=== PATIENT | female | born 1955 | race Caucasian/White ===

== ENCOUNTER 2016-10-06 11:18 | Inpatient (IN) | payer OTHER ==
[~2016-10-06] VITALS: Ht 167.6 cm; Wt 65.0 kg
[2016-10-06] VITALS (13 sets, daily range): BP systolic 105–175; BP diastolic 74–102; PULSE 54–134; RESP 16–18; TEMP 98.1–98.9; O2SAT 95–100
[~2016-10-06 11:18] MED LIST: ASPI81 PO; FEXO180 PO; SYNT25TA
[2016-10-06] MEDS ORDERED: DILTIAZEM HCL 25 MG/5 ML VIAL IV PUSH ONE (11:30)
[2016-10-06] MEDS ORDERED: SODIUM CHLORIDE 0.9% FLUSH 5 ML FLUSH IVF PRN ×2 (11:30→12:00)
--- NOTE | 2016-10-06 12:00 | RADHPO ---
EXAM DATE/TIME: 10/06/2016 11:52 [place] COMPARISON: No previous studies available for comparison. INDICATIONS : Chest pain and rapid heartbeat. MEDICAL HISTORY : Chronic obstructive pulmonary disease. Thyroid disease. SURGICAL HISTORY : None. ENCOUNTER: Initial ACUITY: 1 day PAIN SCORE: 1/10 LOCATION: Bilateral chest FINDINGS: A single view of the chest demonstrates the lungs to be symmetrically aerated without evidence of mas s, infiltrate or effusion. The cardiomediastinal contours are unremarkable. Osseous structures are intact. CONCLUSION: No acute disease. Jamie Coronado MD on October 06, 2016 at 11:58 Board Certified Radiologist. This report was verified electronically.
[2016-10-06 12:01] LABS: AUTOMATED NEUTROPHIL # 5.5 TH/MM3 (1.8-7.7); BASOPHIL # 0.1 TH/MM3 (0-0.2); BASOPHIL % 1.1 % (0.0-2.0); EOSINOPHIL # 0.6 TH/MM3 (0-0.4); EOSINOPHIL % 5.8 % (0.0-4.0); HEMATOCRIT 42.4 % (35.0-46.0); HEMO FLAGS DIFF FINAL; LYMPH % 28.6 % (9.0-44.0); LYMPHOCYTE # 2.8 TH/MM3 (1.0-4.8); MEAN CELL VOLUME 88.9 FL (80.0-100.0); MEAN CORPUSCULAR HEMOGLOBIN 30.1 PG (27.0-34.0); MEAN CORPUSCULAR HGB CONC 33.9 % (32.0-36.0); MONO % 8.3 % (0.0-8.0); NEUT % 56.2 % (16.0-70.0); PLATELET COUNT 359 TH/MM3 (150-450); RED BLOOD COUNT 4.77 MIL/MM3 (4.00-5.30); RED CELL DISTRIBUTION WIDTH 11.8 % (11.6-17.2); WHITE BLOOD COUNT 9.8 TH/MM3 (4.0-11.0)
[2016-10-06 12:09] LABS: CHLORIDE 102 MEQ/L (98-107); POTASSIUM 3.8 MEQ/L (3.5-5.1); SODIUM (NA) 140 MEQ/L (136-145)
[2016-10-06 12:12] LABS: ANION GAP 9 MEQ/L (5-15); BICARBONATE 28.6 MEQ/L (21.0-32.0); BLOOD UREA NITROGEN 13 MG/DL (7-18); MAGNESIUM 2.2 MG/DL (1.5-2.5)
[2016-10-06 12:15] LABS: GLOMERULAR FILTRATION RATE 70 ML/MIN (>89)
[2016-10-06 12:18] LABS: CREATINE KINASE 104 U/L (26-192)
[2016-10-06 12:31] LABS: CKMB 1.8 NG/ML (0.5-3.6)
--- NOTE | 2016-10-06 12:42 | PD ---
HPI . Rapid heartbeat Chief Complaint: Cardiac Complaint Time Seen by Provider: 11:30 Travel History International Travel<30 days: No Contact w/Intl Traveler<30days: No Traveled to known affect area: No History of Present Illness HPI Patient presents with a rapid heartbeat that started about 8:30 this morning. It has persisted. Very mild shortness of breath and dizziness. Patient reports positive previous similar episodes which has spontaneously resolved. PFSH Past Medical History Hx Anticoagulant Therapy: No Cardiovascular Problems: No High Cholesterol: Yes Chemotherapy: No COPD: Yes Cerebrovascular Accident: No Diabetes: No Hypertension: Yes Respiratory: Yes (COPD) Thyroid Disease: Yes Tetanus Vaccination: < 5 Years Influenza Vaccination: No Menopausal: Yes Past Surgical History Gynecologic Surgery: Yes (TUBAL LIGATION) Hysterectomy: No Social History Alcohol Use: Yes (3 beers daily) Tobacco Use: No Substance Use: No Allergies-Medications (Allergen,Severity, Reaction): Coded Allergies: Codeine (Verified Allergy, Severe, Itching, 10/06/16) Reported Meds & Prescriptions Reported Meds & Active Scripts Active Reported Losartan (Losartan Potassium) 25 Mg Tab Unknown Dose PO DAILY Symbicort Inh (Budesonide/Formoterol Fumarate) 80-4.5 Mcg/Act Aero 1 Puff INH Q12HR Synthroid (Levothyroxine Sodium) 25 Mcg Tab 25 Mcg PO DAILY Review of Systems Except as stated in HPI: all other systems reviewed are Neg Cardiovascular: Positive: Chest Pain or Discomfort, Palpitations Respiratory: Positive: Shortness of Breath Neurologic: Positive: Dizziness Physical Exam Narrative GENERAL: This is a healthy-appearing woman in no acute distress. SKIN: Warm and dry. HEAD: Atraumatic. Normocephalic. EYES: Pupils equal and round. ENT: No nasal bleeding or discharge. Mucous membranes pink and moist. NECK: Trachea midline. Neck is supple. CARDIOVASCULAR: Narrow complex tachycardia at about 140-150. RESPIRATORY: No accessory muscle use. Clear. GASTROINTESTINAL: Abdomen soft, non-tender, nondistended. MUSCULOSKELETAL: No obvious deformities. No edema. NEUROLOGICAL: Awake and alert. No obvious cranial nerve deficits. Motor grossly within normal limits. Normal speech. PSYCHIATRIC: Appropriate mood and affect; insight and judgment normal. Data Data Last Documented VS Vital Signs Date Time Temp Pulse Resp B/P Pulse Ox O2 Delivery O2 Flow Rate FiO2 10/06/16 11:48 98 Nasal Cannula 2 10/06/16 11:20 129/94 125/98 10/06/16 11:20 98.2 134 16 Orders Ecg Monitoring (10/06/16 11:30) Blood Pressure (10/06/16 11:30) Iv Access Insert/Monitor (10/06/16 11:30) Oximetry (10/06/16 11:30) Vital Signs (10/06/16 11:30) Diltiazem Inj (Cardizem Inj) (10/06/16 11:30) Sodium Chloride 0.9% Flush (Ns Flush) (10/06/16 11:30) Electrocardiogram (10/06/16 11:47) Basic Metabolic Panel (Bmp) (10/06/16 11:47) Ckmb (Isoenzyme) Profile (10/06/16 11:47) Complete Blood Count With Diff (10/06/16 11:47) D-Dimer (10/06/16 11:47) Magnesium (Mg) (10/06/16 11:47) Troponin I (10/06/16 11:47) Chest, Single Ap (10/06/16 11:47) Ecg Monitoring (10/06/16 11:47) Bilateral Bp Monitoring (10/06/16 11:47) Oxygen Administration (10/06/16 11:47) Sodium Chloride 0.9% Flush (Ns Flush) (10/06/16 12:00) CKMB (10/06/16 11:20) CKMB% (10/06/16 11:20) Troponin I (10/06/16 12:42) Labs Laboratory Tests Test 10/06/16 10/06/16 11:20 13:03 White Blood Count 9.8 TH/MM3 Red Blood Count 4.77 MIL/MM3 Hemoglobin 14.4 GM/DL Hematocrit 42.4 % Mean Corpuscular Volume 88.9 FL Mean Corpuscular Hemoglobin 30.1 PG Mean Corpuscular Hemoglobin 33.9 % Concent Red Cell Distribution Width 11.8 % Platelet Count 359 TH/MM3 Mean Platelet Volume 8.3 FL Neutrophils (%) (Auto) 56.2 % Lymphocytes (%) (Auto) 28.6 % Monocytes (%) (Auto) 8.3 % Eosinophils (%) (Auto) 5.8 % Basophils (%) (Auto) 1.1 % Neutrophils # (Auto) 5.5 TH/MM3 Lymphocytes # (Auto) 2.8 TH/MM3 Monocytes # (Auto) 0.8 TH/MM3 Eosinophils # (Auto) 0.6 TH/MM3 Basophils # (Auto) 0.1 TH/MM3 CBC Comment DIFF FINAL Differential Comment D-Dimer Quantitative (PE/DVT) 0.42 MG/L FEU Sodium Level 140 MEQ/L Potassium Level 3.8 MEQ/L Chloride Level 102 MEQ/L Carbon Dioxide Level 28.6 MEQ/L Anion Gap 9 MEQ/L Blood Urea Nitrogen 13 MG/DL Creatinine 0.83 MG/DL Estimat Glomerular Filtration 70 ML/MIN Rate Random Glucose 114 MG/DL Calcium Level 8.9 MG/DL Magnesium Level 2.2 MG/DL Total Creatine Kinase 104 U/L Creatine Kinase MB 1.8 NG/ML Troponin I 0.07 NG/ML 0.08 NG/ML MDM Medical Decision Making Medical Screen Exam Complete: Yes Emergency Medical Condition: Yes Interpretation(s) Initial EKG shows a narrow complex tachycardia with a rate of 135. Repeat EKG shows a normal sinus rhythm rate of 64 and no acute ischemic changes. Differential Diagnosis Differential diagnosis of tachycardia includes but is not limited to PSVT, atrial fibrillation with a rapid ventricular response, sinus tachycardia (due to hypovolemia, anemia, thyrotoxicosis), PE Narrative Course Patient presented with a narrow complex tachycardia. She was treated with a single dose of Cardizem. She has been in a sinus rhythm since. CBC & BMP Diagram 10/06/16 11:20 Her troponin is 0.07. CK-MB is normal. D-dimer is normal. I will repeat her troponin. Troponin has gone up to 0.08. I will consult cardiology. Last Impressions Chest X-Ray 10/06/16 1147 Signed Impressions: Service Date/Time: Thursday, October 06, 2016 11:52 - CONCLUSION: No acute disease. Jamie Coronado MD I discussed the case with who wants us to send the patient emergently to the catheter lab. However, he wants the patient admitted to the hospitalist service. Physician Communication Physician Communication Dr. Rausch will take her to the [facility]. Diagnosis Primary Impression: SVT (supraventricular tachycardia) Additional Impression: Elevated troponin Admitting Information Admitting Physician Requests: Observation Condition: Stable Mary Gant MD Oct 06, 2016 12:42
[2016-10-06] MEDS ORDERED: SYMB80AE INH (13:04)
[2016-10-06] MEDS ORDERED: SYNT25TA PO (13:04)
[2016-10-06] MEDS ORDERED: LOSA25TA PO (13:04)
[2016-10-06] MEDS ORDERED: SODIUM CHLORIDE 0.9% FLUSH 5 ML FLUSH FLUSH PRN (14:15)
[2016-10-06] MEDS ORDERED: NS 1000P @30 MLS/HR (KVO) IV SCH (16:00)
[2016-10-06] MEDS ORDERED: ADVI200C5 PO (16:06)
[2016-10-06] MEDS ORDERED: IOHEXOL 350 MG/ML 100 ML BTL (for Cath Lab) OTHER ONE (16:06)
[2016-10-06] MEDS ORDERED: MULTCAP13 PO (16:06)
[2016-10-06] MEDS ORDERED: HAWT150C PO (16:06)
[2016-10-06] MEDS ORDERED: CALCTAB80 PO (16:06)
[2016-10-06] MEDS ORDERED: HEPARIN-NS/PF INJ 500 ML ONE (16:12)
[2016-10-06] MEDS ORDERED: MIDAZOLAM HCL 5 MG/5 ML VIAL ONE (16:22)
[2016-10-06 16:57] LABS: INTERNATIONAL NORMALIZED RATIO 5.3 RATIO; PROTHROMBIN TIME - PATIENT 62.5 SEC (9.8-11.6)
[2016-10-06] MEDS ORDERED: SODIUM CHLOR 0.9% 1000 ML INJ 500 ML IV SCH (17:16)
--- NOTE | 2016-10-06 17:21 | HHI.PR ---
Immediate Post Op Note Procedure Date: Oct 06, 2016 Pre Op Diagnosis: (1) Elevated troponin (2) SVT (supraventricular tachycardia) Post Op Diagnosis: (1) SVT (supraventricular tachycardia) (2) Elevated troponin Patent cors Surgeon: Anai Rausch MD, Facc Lighting Director(s): none Procedure: Cath Findings: Patent cors Nl LV fx Mild ascending aortic dilatation Additional Information: BP control. Check fasting lipids. Start beta maricruz. Home later today. Complications: none Specimen(s) removed: none Estimated blood loss: below 10 cc Patient to: Other Patient Condition: Good Anai Rausch MD Oct 06, 2016 17:21
--- NOTE | 2016-10-06 17:58 | HHI.HP ---
cc: Shirley Galan MD [facility] Service [facility] Hospitalists Primary Care Physician Shirley Galan MD Admission Diagnosis SVT, elevated trop Diagnoses: Chief Complaint: palpitations Travel History International Travel<30 Days: No Contact w/Intl Traveler <30 Da: No Traveled to Known Affected Are: No History of Present Illness 61-year-old female with history of COPD, HTN, HLD, hypothyroidism, presents with acute onset of palpitations that started at 8:30 AM this morning 10/06/16. Patient reports actually yesterday morning she started having palpitations, felt her heart was racing, lasted about fifteen minutes, relieved by rest. States she felt great throughout the day and slept well last night. This morning after she had her morning coffee, she developed the palpitations again, described as "heart racing". She denies any chest pains however did have associated mild shortness of breath, lightheadedness, and nausea but no vomiting or diaphoresis. She tried to rest and went back to bed however this did not relieve her symptoms therefore she decided to have her take her to the [facility] ER. Upon arrival, EKG showed narrow complex tachycardia with rate of 135. She was given IV Cardizem 16 mg 1. Repeat EKG showed NSR at rate of 64, no acute ischemic changes. Her troponins were 0.07, 0.08. ER Kervin discussed with Dr. Rausch who requested the patient be transferred [facility] for cardiac catheterization. Patient is now seen post cardiac cath, reportedly clean. Patient has had no further episodes of palpitations. She has wants to go home tomorrow. Of note, the patient takes multiple hleu-giv-yanthcs herbal supplements and vitamins including red yeast rice, calcium, magnesium. She is hesitant to restart a statin as she has been on statins in the past which made her feel "foggy in the head". She has no other medical complaints at this time. Review of Systems Constitutional: DENIES: Diaphoretic episodes, Fever, Chills, Dizziness Endocrine: DENIES: Polydipsia, Polyuria, Polyphagia Eyes: DENIES: Blurred vision, Diplopia, Double Vision Ears, nose, mouth, throat: DENIES: Throat pain, Ear Pain, Running Nose, Odynophagia Respiratory: COMPLAINS OF: Shortness of breath, DENIES: Cough Cardiovascular: COMPLAINS OF: Palpitations, DENIES: Chest pain, Syncope, Dyspnea on Exertion, Lower Extremity Edema, Orthopnea Gastrointestinal: DENIES: Abdominal pain, Constipation, Diarrhea, Nausea, Vomiting Genitourinary: DENIES: Urinary frequency, Urgency, Dysuria Musculoskeletal: DENIES: Joint pain, Back pain, Neck pain Integumentary: DENIES: Abnormal pigmentation, Pruritus, Rash Hematologic/lymphatic: DENIES: Bruising, Lymphadenopathy Immunologic/allergic: DENIES: Eczema, Urticaria Neurologic: DENIES: Abnormal gait, Headache, Localized weakness Psychiatric: DENIES: Anxiety, Depression Past Family Social History Past Medical History COPD HTN HLD Hypothyroidism Past Surgical History Tubal Ligation Reported Medications Losartan (Losartan Potassium) 25 Mg Tab Unknown Dose PO DAILY Symbicort Inh (Budesonide/Formoterol Fumarate) 80-4.5 Mcg/Act Aero 1 Puff INH Q12HR Synthroid (Levothyroxine Sodium) 25 Mcg Tab 25 Mcg PO DAILY Red Yeast Rice Allergies: Coded Allergies: Codeine (Verified Allergy, Severe, Itching, 10/06/16) Active Ordered Medications Current Medications Medications (Trade) Dose Ordered Sig/Josué Route Start Time Stop Time Status Last Admin (NS Flush) 2 ml UNSCH PRN FLUSH 10/06/16 14:15 IV Flush 2 ml 2 ml BID FLUSH 10/06/16 21:00 Sodium Chloride 1,000 ml @ 30 mls/hr Q24H IV 10/06/16 16:00 (NS 1000 ml Inj) 500 ml @ 100 mls/hr Q5H IV 10/06/16 17:16 10/06/16 21:15 Family History Mother with multiple sclerosis, around late 50s-early 60s Father with massive IN and heart disease, around late 50s-early 60s Has 3 children who are fairly healthy Social History Smoked tobacco 1 PPD from age 10 to age 37, (quit 24 years ago) Drinks 4-5 beers or glasses of wine daily Denies illicit drug use Physical Exam Vital Signs Vital Signs Date Time Temp Pulse Resp B/P Pulse Ox O2 Delivery O2 Flow Rate FiO2 10/06/16 15:39 98.9 71 18 175/101 100 10/06/16 14:27 68 16 143/89 100 Nasal Cannula 2 10/06/16 13:45 Nasal Cannula 2 10/06/16 13:25 66 16 113/78 98 Nasal Cannula 2 10/06/16 12:25 74 16 117/83 100 Nasal Cannula 2 10/06/16 11:55 72 16 105/74 99 Nasal Cannula 2 10/06/16 11:48 98 Nasal Cannula 2 10/06/16 11:38 69 16 124/89 99 Nasal Cannula 2 10/06/16 11:20 129/94 125/98 10/06/16 11:20 98.2 134 16 129/84 95 Nasal Cannula 2 10/06/16 11:20 98 Nasal Cannula 2 10/06/16 11:20 16 95 Nasal Cannula 2 10/06/16 11:20 98.2 134 16 129/94 95 Physical Exam GENERAL: Well-nourished, well-developed middle aged female patient in [facility]. Exam limited secondary to patient's positioning post cath. SKIN: Warm and dry. No rash. HEAD: Normocephalic. Atraumatic. EYES: Pupils equal and round. No scleral icterus. No injection or drainage. ENT: No nasal bleeding or discharge. Mucous membranes pink and moist. NECK: Supple. Trachea midline. CARDIOVASCULAR: Regular rate and rhythm. S1, S2 noted. No murmur appreciated. RESPIRATORY: No accessory muscle use. Clear to auscultation. Breath sounds equal bilaterally. GASTROINTESTINAL: Abdomen soft, non-tender, nondistended. Normoactive bowel sounds x4. MUSCULOSKELETAL: No obvious deformities. Extremities without clubbing, cyanosis , or edema. NEUROLOGICAL: Awake and alert. No obvious cranial nerve deficits. Motor grossly within normal limits. Normal speech. PSYCHIATRIC: Appropriate mood and affect; insight and judgment normal. Laboratory Laboratory Tests Test 10/06/16 10/06/16 10/06/16 11:20 13:03 16:00 White Blood Count 9.8 Red Blood Count 4.77 Hemoglobin 14.4 Hematocrit 42.4 Mean Corpuscular Volume 88.9 Mean Corpuscular Hemoglobin 30.1 Mean Corpuscular Hemoglobin 33.9 Concent Red Cell Distribution Width 11.8 Platelet Count 359 Mean Platelet Volume 8.3 Neutrophils (%) (Auto) 56.2 Lymphocytes (%) (Auto) 28.6 Monocytes (%) (Auto) 8.3 Eosinophils (%) (Auto) 5.8 Basophils (%) (Auto) 1.1 Neutrophils # (Auto) 5.5 Lymphocytes # (Auto) 2.8 Monocytes # (Auto) 0.8 Eosinophils # (Auto) 0.6 Basophils # (Auto) 0.1 CBC Comment DIFF FINAL Differential Comment D-Dimer Quantitative (PE/DVT) 0.42 Sodium Level 140 Potassium Level 3.8 Chloride Level 102 Carbon Dioxide Level 28.6 Anion Gap 9 Blood Urea Nitrogen 13 Creatinine 0.83 Estimat Glomerular Filtration 70 Rate Random Glucose 114 Calcium Level 8.9 Magnesium Level 2.2 Total Creatine Kinase 104 Creatine Kinase MB 1.8 Troponin I 0.07 0.08 Prothrombin Time 62.5 Prothromb Time International 5.3 Ratio Activated Partial 39.0 Thromboplast Time Result Diagram: 10/06/16 1120 10/06/16 1120 Imaging Last Impressions Chest X-Ray 10/06/16 1147 Signed Impressions: Service Date/Time: Tuesday, October 06, 2016 11:52 - CONCLUSION: No acute disease. Jamie Coronado MD Assessment and Plan Problem List: (1) SVT (supraventricular tachycardia) ICD Code: I47.1 Status: Acute (2) Elevated troponin ICD Code: R74.8 Status: Acute Assessment and Plan 61-year-old female with history of COPD, HTN, HLD, hypothyroidism, presents with acute onset of palpitations that started at 8:30 AM this morning 10/06/16. SVT: Upon arrival, EKG showed narrow complex tachycardia with rate of 135. She was given IV Cardizem 10 mg 1. Repeat EKG showed NSR at rate of 64, no acute ischemic changes. Cardiology consulted. Consider BB/antiarrhythmic. Monitor on telemetry. No further events. NSTEMI: elevated troponins 0.07, 0.08, suspect secondary to SVT as above. Cardiac Cath done by Dr. Rausch today 10/06, report unavailable at this time however reportedly clean per RN/patient. Start Aspirin. Consider starting statin however patient hesitant. Check Lipid panel. Glucose 114. Monitor on telemetry. HTN: chronic, continue patient's Losartan. Hypothyroidism: chronic, continue patient's Synthroid. COPD: chronic, does not appear to be in exacerbation. Continue patient's Symbicort bid. Duonebs prn. DVT Prophylaxis: teds/SCDs Written by Elizabeth Galdamez, acting as scribe for Dr. Howe on 10/06/16 at 18: 42. The documentation accurately reflects the work performed [id number] by me on at 18:42. Code Status Full code Discussed Condition With Patient, Patient's , CIC RN Physician Certification 2 Midnight Certification Type: Admission for Inpatient Services Order for Inpatient Services The services are ordered in accordance with Medicare regulations or non- Medicare payer requirements, as applicable. In the case of services not specified as inpatient-only, they are appropriately provided as inpatient services in accordance with the 2-midnight benchmark. Estimated LOS (days): 2 days is the estimated time the patient will need to remain in the hospital, assuming treatment plan goals are met and no additional complications. Post-Hospital Plan: Home Elizabeth Galdamez PA-C Oct 06, 2016 17:57 Mitch Howe MD Oct 06, 2016 18:53
[2016-10-06] MEDS ORDERED: RED1CAP4 PO (18:00)
[2016-10-06] MEDS ORDERED: GLUC1CAP16 PO (18:00)
[2016-10-06] MEDS ORDERED: [UNRECOGNIZED DRUG - OTHER] PO (18:05)
[2016-10-06] MEDS ORDERED: [UNRECOGNIZED DRUG - OTHER] PO (18:05)
[2016-10-06] MEDS ORDERED: MORPHINE SULFATE 4 MG/ML INJ IV PRN (18:45)
[2016-10-06] MEDS ORDERED: NALOXONE HCL 0.4 MG/ML AMP IV PRN (18:45)
[2016-10-06] MEDS ORDERED: ACETAMINOPHEN 325 MG TAB PO PRN (19:00)
[2016-10-06 19:17] LABS: HDL CHOLESTEROL 90.2 MG/DL (40.0-60.0)
[2016-10-06] MEDS ORDERED: ONDANSETRON HCL 4 MG/2 ML VIAL IVP PRN (20:00)
[2016-10-06] MEDS ORDERED: RESP: ALBUTEROL 2.5 MG/IPRATROPIUM 0.5 MG NEB (PRN) NEB (20:00)
[2016-10-06] MEDS ORDERED: BUDESONIDE-FORMOTEROL 80/4.5 MCG INHALER INH SCH (21:00)
[2016-10-06] MEDS ORDERED: DOCUSATE SODIUM 100 MG CAP PO PRN (21:00)
[2016-10-06] MEDS ORDERED: SODIUM CHLORIDE 0.9% FLUSH 5 ML FLUSH FLUSH SCH (21:00)
--- NOTE | 2016-10-06 21:36 | MB ---
cc: PEDRO LUIS OLIVIA DATE OF CONSULTATION 10/06/2016 REASON FOR CONSULTATION Ms. Sweeney is a 61-year-old white female with a history of hypertension, dyslipidemia and COPD. She developed episode of supraventricular tachycardia at 8:30 this morning. This lasted for several hours. She was terminated in the emergency room. She had shortness of breath and dizziness. She had similar episodes which were shorter and spontaneously resolved. She has been found to have two sets of elevated cardiac enzymes. PAST MEDICAL HISTORY Positive for: 1. Hypertension. 2. Dyslipidemia. 3. Chronic obstructive pulmonary disease. 4. Tubal ligation. MEDICATIONS 1. Losartan 25 milligrams daily. 2. Symbicort. 3. Synthroid. ALLERGIES CODEINE. SOCIAL HISTORY The patient drinks three beers and one or two glasses of wine each day. She does not smoke. She is . FAMILY HISTORY Positive for heart disease. REVIEW OF SYSTEMS Otherwise negative. PHYSICAL EXAMINATION VITAL SIGNS: Blood pressure 143/89, pulse 58 and regular. HEENT: Negative. 2+ carotid upstroke. No bruits. LUNGS: Clear. HEART: Regular with no murmur, gallop or rub. ABDOMEN: Soft. No bruits. EXTREMITIES: Without edema. 2+ distal pulses. NEUROLOGICAL: Grossly intact. EKG was reviewed and showed paroxysmal supraventricular tachycardia, nonspecific ST-T changes. Followup electrocardiogram showed normal sinus rhythm with normal axis and intervals, no acute changes. LABORATORY DATA Hemoglobin 14.4. Potassium 3.8. Creatinine 0.8. Magnesium 2.2. Troponin 0.07 and 0.08. DIAGNOSES 1. Paroxysmal supraventricular tachycardia. 2. Elevated troponin c/w NSTEMI. 3. Class IV angina. 4. Hypertension. 5. Dyslipidemia. DISPOSITION Ms. Sweeney will undergo cardiac catheterization and coronary intervention if necessary. The patient understands the risks and benefits and wishes to proceed. MD CHUCHO Woodward/NIKI /5:26 PM /9:18 PM RICHARD
--- NOTE | 2016-10-06 21:38 | EKG ---
Date Performed: 10/06/2016 Time Performed: 11:23:30 PTAGE: 61 years EKG: SVT NS ST-T changes Abnormal ECG PREVIOUS TRACING : 06/10/2012 11.39 Compared to the previous tracing, SVT now present DOCTOR: Anai Rausch Interpretating Date/Time 10/06/2016 21:38:08
[2016-10-06] MEDS: ACETAMINOPHEN/HYDROcodone 325 MG/5 MG TAB PO PRN (22:13)
--- NOTE | 2016-10-06 22:54 | EKG ---
Date Performed: 10/06/2016 Time Performed: 11:53:14 PTAGE: 61 years EKG: Sinus rhythm with borderline 1st degree A-V block. rSr'(V1) - probable normal variant Borderline ECG PREVIOUS TRACING : 10/06/2016 11.23 Compared to the previous tracing, tachycardia no longer pr esent DOCTOR: Anai Rausch Interpretating Date/Time 10/06/2016 22:52:16
[2016-10-07] VITALS (8 sets, daily range): BP systolic 132; BP diastolic 82; PULSE 50–62; RESP 18; TEMP 97.9; O2SAT 94–97
[2016-10-07] MEDS: ACETAMINOPHEN/HYDROcodone 325 MG/5 MG TAB PO PRN (02:53)
[2016-10-07] MEDS ORDERED: LEVOTHYROXINE SODIUM 25 MCG TAB PO SCH (06:00)
[2016-10-07] MEDS ORDERED: METO25TA3 PO (07:21)
--- NOTE | 2016-10-07 07:48 | MA ---
cc: PEDRO LUIS OLIVIA DATE 10/06/2016 INDICATIONS Non-ST elevation myocardial infarction, class 4 angina. PROCEDURE PERFORMED 1. Retrograde left heart catheterization with left ventriculography and selective coronary angiography. 2. Moderate sedation. ACCESS SITE Right femoral artery EQUIPMENT USED 5 [place] pigtail catheter, 5 [place] JL4 and AR modified coronary artery catheters. MEDICATIONS Versed IV, Fentanyl IV CONTRAST Omnipaque 120 cc COMPLICATIONS None METHOD OF HEMOSTASIS Manual compression BLOOD LOSS Less than 10 cc PROCEDURE NARRATIVE After the patient was prepped and draped in the usual sterile manner and sedation was administered, the right femoral artery was accessed without difficulty using the Seldinger technique. A left ventriculogram was performed. Coronary angiogram was performed using 5 [place] coronary catheters. The patient tolerated the procedure well and was discharged to the floor in stable condition. RESULTS HEMODYNAMICS Heart rate 70 beats per minute Left ventricular end-diastolic pressure 5 mmHg Left ventricle 110/5 Aorta 110/71/69 LEFT VENTRICULOGRAPHY Ejection fraction 70%. Wall motion normal. No mitral regurgitation. There is mild ascending aortic dilatation. CORONARY ANGIOGRAPHY Left main coronary artery is patent. Left anterior descending artery is patent. D-1 patent, D-2 patent. Left circumflex artery is patent. OM-1 patent. Right coronary artery is a dominant vessel which was patent. The PDA is patent. PLV patent. DIAGNOSIS 1. Widely patent coronary arteries 2. Well preserved left ventricular systolic function. 3. Mild ascending aortic dilatation. DISPOSITION Ms. Sweeney will be monitored on telemetry after her procedure. She can be reassured about her cardiac status. Her coronary arteries are widely patent. She was found to have mild ascending aortic dilatation likely related to long-standing hypertension. I recommend continuing blood pressure control and also aggressive modification of her cardiac risk factors. We will check her fasting lipids. She will be discharged home when stable. I will see her back for followup in our office after discharge. MD CHUCHO Woodward/HANK /5:10 PM /7:32 AM RICHARD
--- NOTE | 2016-10-07 08:17 | HHI.PR ---
Subjective Remarks Follow-up SVT status post left heart catheterization 10/07/16-patient seen and examined, no chest pain or heart palpitation overnight. Currently stable and ready for discharge. Patient states, overnight she was not seen by any staff until after 10 PM from the time I saw her around 6 PM Objective Vitals Vital Signs Date Time Temp Pulse Resp B/P Pulse Ox O2 Delivery O2 Flow Rate FiO2 10/07/16 06:00 52 10/07/16 05:00 52 10/07/16 04:00 52 10/07/16 03:00 97.9 58 18 132/82 97 10/07/16 03:00 54 10/07/16 02:00 50 10/07/16 01:00 54 10/07/16 00:05 94 10/07/16 00:00 62 10/06/16 23:00 66 10/06/16 22:00 70 10/06/16 21:00 66 10/06/16 20:00 64 10/06/16 19:00 66 10/06/16 19:00 98.1 54 18 165/102 98 10/06/16 17:34 98.5 70 18 140/89 99 10/06/16 15:39 98.9 71 18 175/101 100 10/06/16 14:27 68 16 143/89 100 Nasal Cannula 2 10/06/16 13:45 Nasal Cannula 2 10/06/16 13:25 66 16 113/78 98 Nasal Cannula 2 10/06/16 12:25 74 16 117/83 100 Nasal Cannula 2 10/06/16 11:55 72 16 105/74 99 Nasal Cannula 2 10/06/16 11:48 98 Nasal Cannula 2 10/06/16 11:38 69 16 124/89 99 Nasal Cannula 2 10/06/16 11:20 129/94 125/98 10/06/16 11:20 98.2 134 16 129/84 95 Nasal Cannula 2 10/06/16 11:20 98 Nasal Cannula 2 10/06/16 11:20 16 95 Nasal Cannula 2 10/06/16 11:20 98.2 134 16 129/94 95 I/O 10/06/16 10/06/16 10/06/16 10/07/16 10/07/16 10/07/16 07:00 15:00 23:00 07:00 15:00 23:00 Intake Total 480 ml Output Total 800 ml Balance -320 ml Intake Oral 480 ml Output Urine Total 800 ml Result Diagram: 10/06/16 1120 10/06/16 1120 Imaging Last Impressions Chest X-Ray 10/06/16 1147 Signed Impressions: Service Date/Time: Thursday, October 06, 2016 11:52 - CONCLUSION: No acute disease. Jamie Coronado MD Objective Remarks GENERAL: NAD SKIN: Warm and dry. HEAD: Normocephalic. EYES: No scleral icterus. No injection or drainage. NECK: Supple, trachea midline. No JVD or lymphadenopathy. CARDIOVASCULAR: Regular rate and rhythm without murmurs, gallops, or rubs. RESPIRATORY: Breath sounds equal bilaterally. No accessory muscle use. GASTROINTESTINAL: Abdomen soft, non-tender, nondistended. MUSCULOSKELETAL: No cyanosis, or edema. BACK: Nontender without obvious deformity. No CVA tenderness. A/P Problem List: (1) SVT (supraventricular tachycardia) ICD Code: I47.1 Status: Acute (2) Elevated troponin ICD Code: R74.8 Status: Acute Assessment and Plan 61-year-old female with history of COPD, HTN, HLD, hypothyroidism, presents with acute onset of palpitations that started at 8:30 AM this morning 10/06/16. SVT: Upon arrival, EKG showed narrow complex tachycardia with rate of 135. She was given IV Cardizem 10 mg 1. Repeat EKG showed NSR at rate of 64, no acute ischemic changes. Cardiology consulted. Consider BB/antiarrhythmic. Monitor on telemetry. No further events. NSTEMI: elevated troponins 0.07, 0.08, suspect secondary to SVT as above. Cardiac Cath done by Dr. Rausch 10/06. on Aspirin. Consider starting statin however patient hesitant. Check Lipid panel. Glucose 114. Monitor on telemetry. Report of cath: 1. Widely patent coronary arteries 2. Well preserved left ventricular systolic function. 3. Mild ascending aortic dilatation. HTN: chronic, continue patient's Losartan. Hypothyroidism: chronic, continue patient's Synthroid. COPD: chronic, does not in exacerbation. Continue patient's Symbicort bid. Duonebs prn. DVT Prophylaxis: teds/SCDs Discharge Planning Discharge patient to home Condition on discharge: Improved Regular Diet as tolerated Ad Joann activity Rx written:see med rec Follow-up with primary care physician in 1 week Cardiology in 1-2 week Mitch Howe MD Oct 07, 2016 08:17
[2016-10-07] MEDS ORDERED: IOHEXOL 350 MG/ML 50 ML BTL (for Cath Lab) OTHER ONE (08:50)
[2016-10-07] MEDS ORDERED: LOSARTAN 25 MG TAB PO SCH (09:00)
[2016-10-07] MEDS ORDERED: ASPIRIN EC 81 MG TABEC PO SCH (09:00)
== END 2016-10-07 08:51 | disposition home or self-care (01) | DRG 281 ==
LOC: PHED 11:18 → PHEDA 13:56 → OBSVTOIN 14:05 → HCIS 17:23
PROVIDERS: ADMIT Hospitalist; ATTEND Hospitalist
PROC: B2111ZZ Fluoroscopy of Multiple Coronary Arteries using Low Osmolar Contrast (ICD-10-PCS; 2016-10-06)
PROC: B2151ZZ Fluoroscopy of Left Heart using Low Osmolar Contrast (ICD-10-PCS; 2016-10-06)
PROC: 4A023N7 Measurement of Cardiac Sampling and Pressure, Left Heart, Percutaneous Approach (ICD-10-PCS; principal; 2016-10-06 15:15)
DX: I21.4 Non-ST elevation (NSTEMI) myocardial infarction (principal); I47.1 Supraventricular tachycardia; I10 Essential (primary) hypertension; J44.9 Chronic obstructive pulmonary disease, unspecified; E78.5 Hyperlipidemia, unspecified; E03.9 Hypothyroidism, unspecified; E78.00 Pure hypercholesterolemia, unspecified; I77.810 Thoracic aortic ectasia; Z87.891 Personal history of nicotine dependence
CPT/HCPCS: 71010; 80048; 80061; 82550; 82552; 83735; 84484; 85025; 85379; 85610; 85730; 93005; 93458; 96374; C1769; C1893; J1644; J2250; J3010; Q9967